=== PATIENT | female | born 2005 | race Caucasian/White ===

== ENCOUNTER 2024-01-06 22:54 | Emergency (ER) | payer BC ==
[~2024-01-06] VITALS: Ht 167.6 cm; Wt 72.7 kg
[2024-01-06 23:07] VITALS: TEMP 99
[2024-01-06 23:24] LABS: PH 6.5 (5.0-8.5); URINE APPEARANCE CLOUDY (CLEAR/HAZY); URINE BLOOD 3+ (NEGATIVE); URINE COLOR YELLOW (YELLOW); URINE GLUCOSE NEGATIVE (NEGATIVE); URINE KETONE NEGATIVE (NEGATIVE); URINE NITRATE NEGATIVE (NEGATIVE); URINE PROTEIN(semi-quant) 1+ (NEGATIVE); URINE UROBILINOGEN 0.2 E.U/dL (0.2-1.0)
[2024-01-06] MEDS ORDERED: Sulfamethoxazole/Trimethoprim 800-160 MG TAB PO ONE (23:30)
[2024-01-06 23:46] LABS: COLLECTION METHOD CLEAN CATCH
[2024-01-07] MEDS ORDERED: BACTRIM DS 8001 TAB PO (00:29)
[2024-01-07 00:35] VITALS: BP 104/67; PULSE 68
== END 2024-01-07 00:37 | disposition home or self-care (01) ==
LOC: COL.ER 22:54
PROVIDERS: Emergency Medicine
DX: N12 Tubulo-interstitial nephritis, not specified as acute or chronic (principal)